=== PATIENT | female | born 1975 | race Two or more races ===

== ENCOUNTER 2025-06-04 21:35 | Emergency (ER) | payer BC ==
[~2025-06-04] VITALS: Ht 162.6 cm; Wt 61.2 kg
[2025-06-04 22:57] LABS: PLATELET COUNT (AUTO) 189 K/uL (150-450); RED BLOOD CELL COUNT(AUTO) 3.67 MIL/uL (4.0-5.2); RED CELL DISTRIBUTION WIDTH 17.0 % (11.5-15.0); WHITE BLOOD COUNT (AUTO) 9.7 K/uL (4.3-11.0)
[2025-06-04 22:58] LABS: APPEARANCE,URINE CLEAR (CLEAR); BLOOD, URINE NEGATIVE Ery/uL (NEGATIVE); LEUKOCYTE ESTERASE ,URINE NEGATIVE (NEGATIVE); NITRITE, URINE NEGATIVE (NEGATIVE); UGLUCOSE NEGATIVE (NEGATIVE)
[2025-06-04 23:02] LABS: CALCIUM, SERUM 8.9 mg/dL (8.5-10.1); CREATININE 0.8 mg/dL (0.6-1.3); SODIUM SERUM 140.0 mmol/L (136-145); UREA NITROGEN, BLOOD 16.0 mg/dL (7-18)
[2025-06-04 23:15] LABS: ASPARTATE AMINOTRANSFERASE 17.0 U/L (15-37); NT-PRO BNP 82.0 pg/mL (0-125); TOTAL PROTEIN, SERUM 6.6 g/dL (6.4-8.2)
[2025-06-05] MEDS ORDERED: GABA100C PO (01:19)
[2025-06-05 01:26] VITALS: BP 125/73; TEMP 98.2; O2SAT 97
== END 2025-06-05 01:42 | disposition home or self-care (01) ==
LOC: ER 21:45
DX: M54.12 Radiculopathy, cervical region (principal); Z79.899 Other long term (current) drug therapy; Z88.2 Allergy status to sulfonamides
CPT/HCPCS: 36415; 71045-TC; 72125-TC; 80053-TC; 83880; 84484-TC; 85025-TC; 93971-TC